=== PATIENT | female | born 2000 | race African-American/Black ===

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

== ENCOUNTER 2018-02-26 10:47 | Emergency (ER) | payer OTHER ==
[2018-02-26 11:23] LABS: URINE HCG POC HCG NEGATIVE (Negative)
[2018-02-26 11:26] LABS: BILIRUBIN,URINE NEGATIVE (NEG); CLARITY,URINE CLEAR; COLOR,URINE YELLOW; GLUCOSE,URINE NEGATIVE (NEG); NITRITE,URINE NEGATIVE (NEG); PROTEIN,URINE NEGATIVE (NEG-TRACE); UROBILINOGEN,URINE 0.2 mg/dL (0.2 mg/dL)
[2018-02-26 11:33] LABS: BACTERIA,URINE 0 /HPF (0-FEW); RBC,URINE 0 /HPF (0-2); SQUAMOUS EPITHELIAL CELL,UR MANY /LPF
[2018-02-26] MEDS: ACETAMINOPHEN 500 MG TABLET PO (11:38)
== END 2018-02-26 11:38 | disposition left against medical advice (07) ==
LOC: ER 10:47
DX: R30.0 Dysuria (principal); R35.0 Frequency of micturition; Z87.440 Personal history of urinary (tract) infections
CPT/HCPCS: 81001; 81025; 87086; 99284

== ENCOUNTER 2018-03-09 17:32 | Emergency (ER) | payer OTHER ==
[2018-03-10 07:41] LABS: NEGATIVE OBC STREP NEG; POSITIVE OBC STREP POS
== END 2018-03-09 18:45 | disposition home or self-care (01) ==
LOC: ER 17:32
DX: J06.9 Acute upper respiratory infection, unspecified (principal); H92.01 Otalgia, right ear; H92.02 Otalgia, left ear; J45.909 Unspecified asthma, uncomplicated; Z96.22 Myringotomy tube(s) status; Z87.440 Personal history of urinary (tract) infections
CPT/HCPCS: 87880; 99283

== ENCOUNTER 2018-03-10 22:07 | Emergency (ER) | payer OTHER ==
[2018-03-10] MEDS: IV NORMAL SALINE 1000ML BAG 1,000 ML IV (22:50)
[2018-03-10] MEDS: ONDANSETRON PF 4 MG/2 ML VIAL. IV (23:00)
[2018-03-10 23:01] LABS: ADD MAN DIFF? YES; BASO % 0 % (0-3); EOS % 0 % (0-3); HEMATOCRIT 39.1 % (36.0-47.0); HEMOGLOBIN 13.7 g/dL (12.0-15.5); LYMPH # 0.6 x10^3/uL (1.0-4.8); LYMPH % 6 % (24-48); MEAN CORPUSCULAR HEMOGLOBIN 30 pg (25-35); MEAN CORPUSCULAR HGB CONC 35 g/dL (31-37); MEAN CORPUSCULAR VOLUME 86 fL (79-100); MONO # 0.9 x10^3/uL (0.0-1.1); MONO % 8 % (0-9); NEUT # 10.1 x10^3uL (1.8-7.7); NEUT % 86 % (31-73); PLATELET COUNT 181 x10^3/uL (140-400); RED BLOOD COUNT 4.54 x10^6/uL (3.50-5.40); RED CELL DISTRIBUTION WIDTH 12.5 % (11.5-14.5); WHITE BLOOD COUNT 11.7 x10^3/uL (4.0-11.0)
[2018-03-10 23:09] LABS: ANION GAP 13 (6-14); BLOOD UREA NITROGEN 9 mg/dL (7-20); CALCIUM 9.3 mg/dL (8.5-10.1); CARBON DIOXIDE 23 mmol/L (21-32); CHLORIDE 104 mmol/L (98-107); GFR 86.4; GLUCOSE 101 mg/dL (70-99); POTASSIUM 3.4 mmol/L (3.5-5.1); SODIUM 140 mmol/L (136-145)
[2018-03-10] MEDS: ACETAMINOPHEN 500 MG TABLET PO (23:40)
[2018-03-11 00:03] LABS: BILIRUBIN,URINE NEGATIVE (NEG); CLARITY,URINE CLEAR; COLOR,URINE YELLOW; GLUCOSE,URINE NEGATIVE (NEG); NITRITE,URINE NEGATIVE (NEG); PH,URINE 5.5; PROTEIN,URINE NEGATIVE (NEG-TRACE); UROBILINOGEN,URINE 0.2 mg/dL (0.2 mg/dL)
[2018-03-11 00:08] LABS: BACTERIA,URINE FEW /HPF (0-FEW); RBC,URINE >40 /HPF (0-2)
[2018-03-11 00:09] LABS: HYALINE CASTS, URINE FEW /HPF; SQUAMOUS EPITHELIAL CELL,UR FEW /LPF
[2018-03-11] MEDS: PROMETHAZINE 12.5 MG TABLET. PO (00:15)
[2018-03-11] MEDS: AMOXICILLIN 250 MG CAPSULE. PO (00:30)
[2018-03-11 04:17] LABS: % ATYL 1 % (0-0); % BANDS 4 % (0-9); % LYMPHS 4 % (24-48); % MONOS 4 % (0-10); % SEGS 87 % (35-66); PLT ESTIMATE ADEQUATE (ADEQUATE)
== END 2018-03-11 00:45 | disposition home or self-care (01) ==
LOC: ER 22:07
DX: J01.10 Acute frontal sinusitis, unspecified (principal); R11.2 Nausea with vomiting, unspecified; Z87.440 Personal history of urinary (tract) infections
CPT/HCPCS: 36415; 80048; 81001; 85007; 85025; 87086; 96361; 96374; 99284-25; J2405; J7030; Q0169

== ENCOUNTER 2018-04-06 13:28 | Emergency (ER) | payer OTHER ==
[~2018-04-06] VITALS: Ht 162.6 cm; Wt 76.9 kg
[~2018-04-06 13:28] MED LIST: AMOX500T PO; IBUP-1007 PO; IBUP-1060 PO; NITR100C62 PO; ONDA4TAB10 PO; ONDA4TAB10 SL; PHEN-318 PO; PRED50TA PO; PROM25SU32 RC; PROM25TA10 PO
[2018-04-06 13:59] LABS: BILIRUBIN,URINE NEGATIVE (NEG); CLARITY,URINE CLEAR; COLOR,URINE YELLOW; NITRITE,URINE NEGATIVE (NEG); PROTEIN,URINE NEGATIVE (NEG-TRACE); UROBILINOGEN,URINE 0.2 mg/dL (0.2 mg/dL)
[2018-04-06 14:03] LABS: BASO % 1 % (0-3); EOS % 1 % (0-3); HEMATOCRIT 38.5 % (36.0-47.0); HEMOGLOBIN 13.5 g/dL (12.0-15.5); LYMPH # 1.5 x10^3/uL (1.0-4.8); LYMPH % 37 % (24-48); MEAN CORPUSCULAR HEMOGLOBIN 30 pg (25-35); MEAN CORPUSCULAR HGB CONC 35 g/dL (31-37); MEAN CORPUSCULAR VOLUME 86 fL (79-100); MONO # 0.2 x10^3/uL (0.0-1.1); MONO % 5 % (0-9); NEUT # 2.3 x10^3uL (1.8-7.7); NEUT % 56 % (31-73); PLATELET COUNT 198 x10^3/uL (140-400); RED BLOOD COUNT 4.48 x10^6/uL (3.50-5.40); WHITE BLOOD COUNT 4.2 x10^3/uL (4.0-11.0)
[2018-04-06 14:11] LABS: BACTERIA,URINE MANY /HPF (0-FEW); RBC,URINE RARE /HPF (0-2); SQUAMOUS EPITHELIAL CELL,UR MANY /LPF
[2018-04-06 14:14] LABS: AMPHETAMINE/METHAMPHETAMINE NEG (NEG); BARBITURATES NEG (NEG); BENZODIAZEPINES NEG (NEG); CANNABINOIDS NEG (NEG); COCAINE NEG (NEG); METHADONE NEG (NEG); OPIATES NEG (NEG); PHENCYCLIDINE NEG (NEG)
--- NOTE | 2018-04-06 14:14 | RAD ---
AP and Lateral Views of the Chest 04/06/2018 1:47 PM Indication: PALPITATIONS STARTED THIS AM Comparison: Chest radiograph March 28, 2017 Findings: There is no focal consolidation or infiltrate identified. The cardiomediastinal silhouette is within normal limits. There is no evidence of pneumothorax or pleural effusion. No acute osseous abnormalities are identified. Impression: No evidence of acute cardiopulmonary process. Electronically signed by: Ellis Grigsby MD (04/06/2018 2:11 PM) [email or web address]
[2018-04-06 14:22] LABS: CREATININE 0.8 mg/dL (0.6-1.0); GFR 111.8; POTASSIUM 3.5 mmol/L (3.5-5.1)
--- NOTE | 2018-04-06 14:23 | RAD ---
CT HEAD WO CONTRAST History: DIZZY SINCE THIS AM. Comparison: None. Technique: Noncontrast CT imaging was performed of the head. Exposure: One or more of the following individualized dose reduction techniques were utilized for this examination: 1. Automated exposure control 2. Adjustment of the mA and/or kV according to patient size 3. Use of iterative reconstruction technique. Findings: No acute extra-axial or parenchymal hemorrhage is identified. There is no significant intra-axial mass effect, midline shift, or extra-axial fluid collection. The sheth-white differentiation of the major vascular territories is preserved. The ventricles, sulci, and cisterns are within normal limits in size and configuration. The mastoid air cells and the visualized paranasal sinuses are aerated. No acute calvarial abnormality is identified. Impression: 1. No acute intracranial abnormality is identified. Electronically signed by: Lázaro Montes MD (04/06/2018 2:20 PM) [id number]
[2018-04-06 14:27] LABS: ALBUMIN 3.6 g/dL (3.4-5.0); ALBUMIN/GLOBULIN RATIO 0.8 (1.0-1.7); TOTAL BILIRUBIN 0.3 mg/dL (0.2-1.0); TOTAL PROTEIN 8.1 g/dL (6.4-8.2)
[2018-04-06] MEDS ORDERED: SULF1TAB24 PO (14:37)
--- NOTE | 2018-04-06 14:38 | PHYS DOC ---
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 The patient states that this started this morning. She denies fever, headache, vision changes or changes in gait. She states that she had some numbness in her right toes when she awoke that traveled up her right side. She states that she has been tired and fatigued and when she was driving to work today she just felt funny. She states that sometimes she feels like her heart is beating hard in her chest. Review of Systems Review of Systems Constitutional: Denies fever or chills [] Eyes: Denies change in visual acuity, redness, or eye pain [] HENT: Denies nasal congestion or sore throat [] Respiratory: Denies cough or shortness of breath [] Cardiovascular: See history of present illness GI: Denies abdominal pain, nausea, vomiting, bloody stools or diarrhea [] : Denies dysuria or hematuria [] Musculoskeletal: Denies back pain or joint pain [] Integument: Denies rash or skin lesions [] Neurologic: See history of present illness Endocrine: Denies polyuria or polydipsia [] All other systems were reviewed and found to be within normal limits, except as documented in this note. Allergies Allergies Allergies Coded Allergies Type Severity Reaction Last Updated Verified No Known Drug Allergies 11/10/15 No Physical Exam Physical Exam Constitutional: Well developed, well nourished, no acute distress, non-toxic appearance. [] HENT: Normocephalic, atraumatic, bilateral external ears normal, oropharynx moist, no oral exudates, nose normal. [] Eyes: PERRLA, EOMI, conjunctiva normal, no discharge. [] Neck: Normal range of motion, no tenderness, supple, no stridor. [] Cardiovascular:Heart rate regular rhythm, no murmur [] Lungs & Thorax: Bilateral breath sounds clear to auscultation [] Abdomen: Bowel sounds normal, soft, no tenderness, no masses, no pulsatile masses. [] Skin: Warm, dry, no erythema, no rash. [] Back: No tenderness, no CVA tenderness. [] Extremities: No tenderness, no cyanosis, no clubbing, ROM intact, no edema. [] Neurologic: Alert and oriented X 3, normal motor function, normal sensory function, no focal deficits noted, cranial nerves II through XII are grossly intact. [] Psychologic: Affect normal, judgement normal, mood normal. [] Current Patient Data Vital Signs Vital Signs Date Time Temp Pulse Resp B/P (MAP) Pulse Ox O2 Delivery O2 Flow Rate FiO2 04/06/18 15:15 68 12 99 04/06/18 13:49 111/65 (80) Room Air Lab Values Laboratory Tests Test 04/06/18 13:15 04/06/18 13:40 04/06/18 13:53 White Blood Count 4.2 x10^3/uL (4.0-11.0) Red Blood Count 4.48 x10^6/uL (3.50-5.40) Hemoglobin 13.5 g/dL (12.0-15.5) Hematocrit 38.5 % (36.0-47.0) Mean Corpuscular Volume 86 fL (79-100) Mean Corpuscular Hemoglobin 30 pg (25-35) Mean Corpuscular Hemoglobin Concent 35 g/dL (31-37) Red Cell Distribution Width 13.0 % (11.5-14.5) Platelet Count 198 x10^3/uL (140-400) Neutrophils (%) (Auto) 56 % (31-73) Lymphocytes (%) (Auto) 37 % (24-48) Monocytes (%) (Auto) 5 % (0-9) Eosinophils (%) (Auto) 1 % (0-3) Basophils (%) (Auto) 1 % (0-3) Neutrophils # (Auto) 2.3 x10^3uL (1.8-7.7) Lymphocytes # (Auto) 1.5 x10^3/uL (1.0-4.8) Monocytes # (Auto) 0.2 x10^3/uL (0.0-1.1) Eosinophils # (Auto) 0.0 x10^3/uL (0.0-0.7) Basophils # (Auto) 0.0 x10^3/uL (0.0-0.2) Sodium Level 140 mmol/L (136-145) Potassium Level 3.5 mmol/L (3.5-5.1) Chloride Level 105 mmol/L (98-107) Carbon Dioxide Level 25 mmol/L (21-32) Anion Gap 10 (6-14) Blood Urea Nitrogen 11 mg/dL (7-20) Creatinine 0.8 mg/dL (0.6-1.0) Estimated GFR (Cockcroft-Gault) 111.8 BUN/Creatinine Ratio 14 (6-20) Glucose Level 116 mg/dL (70-99) H Calcium Level 9.0 mg/dL (8.5-10.1) Total Bilirubin 0.3 mg/dL (0.2-1.0) Aspartate Amino Transferase (AST) 14 U/L (15-37) L Alanine Aminotransferase (ALT) 15 U/L (14-59) Alkaline Phosphatase 57 U/L (46-116) Total Protein 8.1 g/dL (6.4-8.2) Albumin 3.6 g/dL (3.4-5.0) Albumin/Globulin Ratio 0.8 (1.0-1.7) L Urine Collection Type Unknown Urine Color Yellow Urine Clarity Clear Urine pH 5.0 Urine Specific [place] >=1.030 Urine Protein Negative mg/dL (NEG-TRACE) Urine Glucose (UA) Negative mg/dL (NEG) Urine Ketones (Stick) Negative mg/dL (NEG) Urine Blood Large (NEG) Urine Nitrite Negative (NEG) Urine Bilirubin Negative (NEG) Urine Urobilinogen Dipstick 0.2 mg/dL (0.2 mg/dL) Urine Leukocyte Esterase Trace (NEG) Urine RBC Rare /HPF (0-2) Urine WBC 1-4 /HPF (0-4) Urine Squamous Epithelial Cells Many /LPF Urine Bacteria Many /HPF (0-FEW) Urine Mucus Mod /LPF Urine Opiates Screen Neg (NEG) Urine Methadone Screen Neg (NEG) Urine Barbiturates Neg (NEG) Urine Phencyclidine Screen Neg (NEG) Urine Amphetamine/Methamphetamine Neg (NEG) Urine Benzodiazepines Screen Neg (NEG) Urine Cocaine Screen Neg (NEG) Urine Cannabinoids Screen Neg (NEG) Urine Ethyl Alcohol Neg (NEG) POC Urine HCG, Qualitative Hcg negative (Negative) Laboratory Tests 04/06/18 13:15 Laboratory Tests 04/06/18 13:15 EKG EKG [] Radiology/Procedures Radiology/Procedures []IMAGING REPORT Signed PATIENT: SAMARIA RANDHAWA ACCOUNT: [id number] : 2000 LOCATION: ER AGE: 17 SEX: F EXAM STATUS: REG ER ORD. PHYSICIAN: SHIRA ZARATE APRN REASON: dizzy PROCEDURE: CT HEAD WO CONTRAST CT HEAD WO CONTRAST History: DIZZY SINCE THIS AM. Comparison: None. Technique: Noncontrast CT imaging was performed of the head. Exposure: One or more of the following individualized dose reduction techniques were utilized for this examination: 1. Automated exposure control 2. Adjustment of the mA and/or kV according to patient size 3. Use of iterative reconstruction technique. Findings: No acute extra-axial or parenchymal hemorrhage is identified. There is no significant intra-axial mass effect, midline shift, or extra-axial fluid collection. The sheth-white differentiation of the major vascular territories is preserved. The ventricles, sulci, and cisterns are within normal limits in size and configuration. The mastoid air cells and the visualized paranasal sinuses are aerated. No acute calvarial abnormality is identified. Impression: 1. No acute intracranial abnormality is identified. Electronically signed by: Travis Medley MD (04/06/2018 2:20 PM) [email or web address] DICTATED and SIGNED BY: TRAVIS MEDLEY MD DATE: 04/06/18 1420 PATIENT: SAMARIA RANDHAWA ACCOUNT: [id number] : 2000 LOCATION: ER AGE: 17 SEX: F EXAM STATUS: REG ER ORD. PHYSICIAN: SHIRA ZARATE APRN REASON: palpitations PROCEDURE: CHEST PA & LATERAL AP and Lateral Views of the Chest 04/06/2018 1:47 PM Indication: PALPITATIONS STARTED THIS AM Comparison: Chest radiograph March 28, 2017 Findings: There is no focal consolidation or infiltrate identified. The cardiomediastinal silhouette is within normal limits. There is no evidence of pneumothorax or pleural effusion. No acute osseous abnormalities are identified. Impression: No evidence of acute cardiopulmonary process. Electronically signed by: Ellis Perdomo MD (04/06/2018 2:11 PM) [email or web address] DICTATED and SIGNED BY: ELLIS PERDOMO MD DATE: 04/06/18 1410 Course & Med Decision Making Course & Med Decision Making Pertinent Labs and Imaging studies reviewed. (See chart for details) []The patient's EKG, lab work and imaging were negative for an acute cause of her symptoms aside from a urinary tract infection. The patient will be treated for this infection. She did ask for work note for 2 days. That was given to her. She is to follow-up with her primary care provider if not improving. She is in agreement with this plan. Dragon Disclaimer Dragon Disclaimer This electronic medical record was generated, in whole or in part, using a voice recognition dictation system. Departure Departure Impression: Primary Impression: UTI (urinary tract infection) Disposition: 01 HOME, SELF-CARE Condition: STABLE Referrals: NO PCP (PCP) Patient Instructions: Urinary Tract Infection Additional Instructions: Take the antibiotic as directed. Follow-up with your primary care provider in one week for urine recheck. Increase fluids and rest. Scripts Sulfamethoxazole/Trimethoprim (BACTRIM DS TABLET) 1 Each Tablet 1 TAB PO BID, #14 TAB Prov: SHIRA ZARATE APRN 04/06/18 SHIRA ZARATE APRN Apr 06, 2018 14:38
--- NOTE | 2018-04-06 14:48 | EKG ---
[facility] [address] [place] [address] Test Date: 2018-04-06 Test Time: 13:50:01 Pat Name: SAMARIA RANDHAWA Department: Room: Gender: F Rayon Winder: : 2000 Requested By: SHIRA ZARATE Order Number: [id number] Reading MD: Carlos Jara MD Measurements Intervals [place] Rate: 79 P: 50 VA: 174 QRS: 45 QRSD: 84 T: 36 QT: 358 QTc: 416 Interpretive Statements SINUS RHYTHM Electronically Signed On 04-07-2018 8:21:00 CDT by Carlos Jara MD
[2018-04-06 15:15] VITALS: BP 98/60
== END 2018-04-06 15:18 | disposition home or self-care (01) ==
LOC: ER 13:28
DX: N39.0 Urinary tract infection, site not specified (principal); R00.2 Palpitations; R53.81 Other malaise; R42 Dizziness and giddiness; J45.909 Unspecified asthma, uncomplicated; Z98.890 Other specified postprocedural states
CPT/HCPCS: 36415; 70450; 71046; 80053; 80307; 81001; 81025; 85025; 87086; 93005; 99285-25; G0479

== ENCOUNTER 2018-04-12 22:08 | Emergency (ER) | payer OTHER ==
[~2018-04-12 22:08] MED LIST changes: +SULF1TAB24 PO
[2018-04-12 23:22] VITALS: BP 112/71
== END 2018-04-13 00:39 | disposition left against medical advice (07) ==
LOC: ER 22:11
DX: S09.90XA Unspecified injury of head, initial encounter (principal); Z53.21 Procedure and treatment not carried out due to patient leaving prior to being seen by health care provider; X58.XXXA Exposure to other specified factors, initial encounter; Y93.89 Activity, other specified; Y92.89 Other specified places as the place of occurrence of the external cause; Y99.8 Other external cause status

== ENCOUNTER 2018-12-13 10:26 | Emergency (ER) | payer SELFPAY ==
[~2018-12-13] VITALS: Ht 162.6 cm; Wt 81.6 kg
[2018-12-13 10:35] VITALS: BP 125/78
[2018-12-13] MEDS ORDERED: DEXAMETHASONE SOD PHOS 20 MG/5 ML VIAL. PO ONE (11:15)
[2018-12-13] MEDS ORDERED: DEXAMETHASONE SOD PHOS 4 MG/ML VIAL ONE (11:19)
[2018-12-13] MEDS ORDERED: DEXAMETHASONE SOD PHOS 4 MG/ML VIAL PO ONE (11:30)
--- NOTE | 2018-12-13 13:27 | PHYS DOC ---
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 Review of Systems Review of Systems Constitutional: Denies fever or chills [] Eyes: She does have seasonal allergies GI: Denies abdominal pain, nausea, vomiting, bloody stools or diarrhea [] Neurologic: Denies headache, focal weakness or sensory changes [] Endocrine: Denies polyuria or polydipsia [] All other systems were reviewed and found to be within normal limits, except as documented in this note. Current Medications Current Medications Current Medications Medications (Trade) Dose Ordered Sig/Darian Start Time Stop Time Status Last Admin Dose Admin Dexamethasone Sodium Phosphate (Decadron) 4 mg STK-MED ONCE 12/13/18 11:19 12/13/18 11:20 DC Allergies Allergies Allergies Coded Allergies Type Severity Reaction Last Updated Verified No Known Drug Allergies 11/10/15 No Physical Exam Physical Exam Constitutional: Well developed, well nourished, no acute distress, non-toxic appearance. [] HENT: Sinus congestion and tenderness noted in the maxillary area bilateral mild tonsillar erythema no exudate positive lymphadenopathy noted Eyes: PERRLA, EOMI, conjunctiva normal, no discharge. [] Neck: Normal range of motion, no tenderness, supple, no stridor. [] Cardiovascular:Heart rate regular rhythm, no murmur [] Lungs & Thorax: Bilateral breath sounds clear to auscultation [] Abdomen: Bowel sounds normal, soft, no tenderness, no masses, no pulsatile masses. [] Skin: Warm, dry, no erythema, no rash. [] Back: No tenderness, no CVA tenderness. [] Extremities: No tenderness, no cyanosis, no clubbing, ROM intact, no edema. [] Neurologic: Alert and oriented X 3, normal motor function, normal sensory function, no focal deficits noted. [] Psychologic: Affect normal, judgement normal, mood normal. [] Current Patient Data Vital Signs Vital Signs Date Time Temp Pulse Resp B/P (MAP) Pulse Ox O2 Delivery O2 Flow Rate FiO2 12/13/18 10:35 98.2 94 18 125/78 (94) 99 Room Air 98.2 Lab Values Laboratory Tests Test 12/13/18 10:48 Group A Streptococcus Rapid Negative (NEGATIVE) EKG EKG [] Radiology/Procedures Radiology/Procedures [] Course & Med Decision Making Course & Med Decision Making Pertinent Labs and Imaging studies reviewed. (See chart for details) []Rapid strep is negative Likely sinus congestion etc. [id number] agents Decadron was given in the emergency room Dragon Disclaimer Dragon Disclaimer This electronic medical record was generated, in whole or in part, using a voice recognition dictation system. Departure Departure Impression: Primary Impression: Viral pharyngitis Disposition: HOME, SELF-CARE Condition: STABLE Referrals: NO PCP (PCP) Patient Instructions: Sore Throat, [id number] JAMAL BAUTISTA MD Dec 13, 2018 13:27
== END 2018-12-13 11:24 | disposition home or self-care (01) ==
LOC: ER 10:26
DX: J02.8 Acute pharyngitis due to other specified organisms (principal); B97.89 Other viral agents as the cause of diseases classified elsewhere; J45.909 Unspecified asthma, uncomplicated; Z90.89 Acquired absence of other organs; Z77.22 Contact with and (suspected) exposure to environmental tobacco smoke (acute) (chronic)
CPT/HCPCS: 87070; 87880; 99283; J1100

== ENCOUNTER 2018-12-15 12:44 | Emergency (ER) | payer SELFPAY ==
[~2018-12-15] VITALS: Ht 162.6 cm; Wt 76.7 kg
[2018-12-15 16:23] LABS: BILIRUBIN,URINE NEGATIVE (NEG); CLARITY,URINE CLEAR; COLOR,URINE YELLOW; NITRITE,URINE NEGATIVE (NEG); PROTEIN,URINE NEGATIVE (NEG-TRACE); UROBILINOGEN,URINE 0.2 mg/dL (0.2 mg/dL)
[2018-12-15 16:36] LABS: BACTERIA,URINE FEW /HPF (0-FEW); RBC,URINE 0 /HPF (0-2); SQUAMOUS EPITHELIAL CELL,UR OCC /LPF
--- NOTE | 2018-12-15 16:43 | RAD ---
Examination: Ultrasound pelvis HISTORY: History of pelvic pain, vaginal irritation, redness. COMPARISON: None available FINDINGS: The uterus measures 6.5 x 5.0 x 4.2 cm. Endometrium measures 5.6 mm in thickness. The right ovary measures 3.2 x 2.4 x 2.9 cm. The left ovary measures 3.4 x 1.5 x 1.8 cm. Blood flow identified in the right and left ovaries. Follicles identified in the right and left ovaries. IMPRESSION: Unremarkable exam Electronically signed by: Stefano Beebe MD (12/15/2018 4:41 PM) [id number]
[2018-12-15] MEDS ORDERED: ONDA4TAB12 PO (17:02)
[2018-12-15] MEDS ORDERED: AMOX875T PO (17:02)
[2018-12-15] MEDS ORDERED: METR500T PO (17:02)
--- NOTE | 2018-12-15 17:03 | PHYS DOC ---
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 Symptoms include cough, runny nose, congestion, and R ear ache. She has associated symptoms of Left lower pelvic pain, nausea and vomiting. She also complains of vaginal irritation that started last night. She rates her pain a 8/10 and is stabbing in nature. Review of Systems Review of Systems Constitutional: Denies fever or chills [] Eyes: Denies change in visual acuity, redness, or eye pain [] HENT: Report nasal congestion. Denies sore throat [] Respiratory: Reports cough. Denies shortness of breath [] Cardiovascular: No additional information not addressed in HPI [] GI: Reports abdominal pain, nausea, and vomiting. : Reports dysuria or hematuria [] Musculoskeletal: Denies back pain or joint pain [] Integument: Denies rash or skin lesions [] Neurologic: Denies headache, focal weakness or sensory changes [] Endocrine: Denies polyuria or polydipsia [] Complete systems were reviewed and found to be within normal limits, except as documented in this note. Current Medications Current Medications Current Medications Medications (Trade) Dose Ordered Sig/Darian Start Time Stop Time Status Last Admin Dose Admin Azithromycin (Zithromax) 1,000 mg 1X ONCE 12/15/18 17:15 12/15/18 17:16 DC 12/15/18 17:13 1,000 MG Ceftriaxone Sodium (Rocephin Im) 250 mg 1X ONCE 12/15/18 17:15 12/15/18 17:16 DC 12/15/18 17:14 250 MG Allergies Allergies Allergies Coded Allergies Type Severity Reaction Last Updated Verified No Known Drug Allergies 11/10/15 No Physical Exam Physical Exam Constitutional: Well developed, well nourished, no acute distress, non-toxic appearance. [] HENT: Normocephalic, atraumatic, right erythema in the tympanic membrane, oropharynx moist, no oral exudates, turbinates red. [] Eyes: PERRLA, EOMI, conjunctiva normal, no discharge. [] Neck: Normal range of motion, no tenderness, supple, no stridor. [] Cardiovascular:Heart rate regular rhythm, no murmur [] Lungs & Thorax: Bilateral breath sounds clear to auscultation [] Abdomen: Bowel sounds normal, soft, left lower quadrant tenderness, no masses, no pulsatile masses. [] Skin: Warm, dry, no erythema, no rash. [] Back: No tenderness, no CVA tenderness. [] Extremities: No tenderness, no cyanosis, no clubbing, ROM intact, no edema. [] Neurologic: Alert and oriented X 3, normal motor function, normal sensory function, no focal deficits noted. [] Psychologic: Affect normal, judgement normal, mood normal. [] Current Patient Data Vital Signs Vital Signs Date Time Temp Pulse Resp B/P (MAP) Pulse Ox O2 Delivery O2 Flow Rate FiO2 12/15/18 17:24 89 16 108/69 (82) 98 Room Air 12/15/18 14:33 98.5 98.5 Lab Values Laboratory Tests Test 12/15/18 14:33 12/15/18 14:50 12/15/18 15:32 POC Urine HCG, Qualitative Hcg negative (Negative) Urine Color Yellow Urine Clarity Clear Urine pH 6.0 Urine Specific Sims 1.025 Urine Protein Negative mg/dL (NEG-TRACE) Urine Glucose (UA) Negative mg/dL (NEG) Urine Ketones (Stick) Negative mg/dL (NEG) Urine Blood Negative (NEG) Urine Nitrite Negative (NEG) Urine Bilirubin Negative (NEG) Urine Urobilinogen Dipstick 0.2 mg/dL (0.2 mg/dL) Urine Leukocyte Esterase Small (NEG) Urine RBC 0 /HPF (0-2) Urine WBC 5-10 /HPF (0-4) Urine Squamous Epithelial Cells Occ /LPF Urine Bacteria Few /HPF (0-FEW) Urine Mucus Mod /LPF Chlamydia DNA Probe Negative (Negative) Neisseria gonorrhoeae DNA Probe Negative (Negative) Microbiology 12/15/18 Wet Prep - Final, Complete EKG EKG [] Radiology/Procedures Radiology/Procedures Pelvic Exam: External exam is normal and without rash, Has CMT, OS is closed, Mild white discharge, No adnexal masses and mild tenderness noted[] PATIENT: SAMARIA RANDHAWA ACCOUNT: [id number] : 2000 LOCATION: ER AGE: 18 SEX: F EXAM STATUS: REG ER ORD. PHYSICIAN: GRISELDA LOPEZ APRN REASON: pelvic pain/vag irritation/redness PROCEDURE: PELVIS W/TV Examination: Ultrasound pelvis HISTORY: History of pelvic pain, vaginal irritation, redness. COMPARISON: None available FINDINGS: The uterus measures 6.5 x 5.0 x 4.2 cm. Endometrium measures 5.6 mm in thickness. The right ovary measures 3.2 x 2.4 x 2.9 cm. The left ovary measures 3.4 x 1.5 x 1.8 cm. Blood flow identified in the right and left ovaries. Follicles identified in the right and left ovaries. IMPRESSION: Unremarkable exam Electronically signed by: Stefano Beebe MD (12/15/2018 4:41 PM) [facility] Course & Med Decision Making Course & Med Decision Making Pertinent Labs and Imaging studies reviewed. (See chart for details) Discussed with patient about ordering an ultrasound, labs, urine, pelvic exam, STD testing, and she is agreeable. Will also order nausea medication. She declines pain medication. Nursing states patient refused lab. Talked to patient and does not want labs. Discussed how her STD test will not fully come back but lab states she has Trich. She agrees to go ahead and be treated for Trich and Gonorrhea and Chlamydia. Will also treat for UTI and R Otitis Media. Will then send home. Patient is agreeable. Dragon Disclaimer Dragon Disclaimer This electronic medical record was generated, in whole or in part, using a voice recognition dictation system. Departure Departure Impression: Primary Impression: UTI (urinary tract infection) Additional Impressions: Otitis media Trichomoniasis Disposition: 01 HOME, SELF-CARE Condition: STABLE Referrals: NO PCP (PCP) Patient Instructions: Trichomoniasis, Urinary Tract Infection, [id number] Additional Instructions: Please take antibiotics. Avoid sexual contact for two weeks. You were prophylactically treated for Gonorrhea and Chlamydia. Avoid Alcohol with Flagyl and 3 days afterwards. Return to ER if symptoms worsen. Scripts Ondansetron (ONDANSETRON ODT) 4 Mg Tab.rapdis 1 TAB PO PRN Q6-8HRS PRN for NAUSEA, #16 TAB Prov: GRISELDA LOPEZ APRN 12/15/18 Amoxicillin (AMOXICILLIN) 875 Mg Tablet 1 TAB PO BID for 7 Days, #14 TAB Prov: GRISELDA LOPEZ APRN 12/15/18 Metronidazole (FLAGYL) 500 Mg Tablet 1 TAB PO BID for 7 Days, #14 TAB 0 Refills Prov: GRISELDA LOPEZ APRN 12/15/18 Problem Qualifiers Primary Impression: UTI (urinary tract infection) Urinary tract infection type: acute cystitis Hematuria presence: without hematuria Qualified Codes: N30.00 - Acute cystitis without hematuria Additional Impressions: Otitis media Otitis media type: suppurative Chronicity: acute Laterality: right Recurrence: non-recurrent Spontaneous tympanic membrane rupture: without spontaneous rupture Qualified Codes: H66.001 - Acute suppurative otitis media without spontaneous rupture of ear drum, right ear GRISELDA LOPEZ APRN December 15, 2018 17:03
[2018-12-15] MEDS ORDERED: cefTRIAXone IM 250 MG VIAL IM ONE (17:15)
[2018-12-15] MEDS ORDERED: AZITHROMYCIN 250 MG TABLET. PO ONE (17:15)
[2018-12-15 17:24] VITALS: BP 108/69
[2018-12-16 13:15] LABS: GC PROBE Negative (Negative)
== END 2018-12-15 17:29 | disposition home or self-care (01) ==
LOC: ER 12:44
DX: N30.00 Acute cystitis without hematuria (principal); H66.001 Acute suppurative otitis media without spontaneous rupture of ear drum, right ear; A59.8 Trichomoniasis of other sites; R10.2 Pelvic and perineal pain; R11.2 Nausea with vomiting, unspecified; R10.32 Left lower quadrant pain; J45.909 Unspecified asthma, uncomplicated; Z90.89 Acquired absence of other organs
CPT/HCPCS: 36415; 76830; 76856; 81001; 81025; 87491; 87591; 96372; 99285; J0696; Q0111; Q0144

== ENCOUNTER 2019-08-01 17:48 | Emergency (ER) | payer SELFPAY ==
[~2019-08-01] VITALS: Ht 162.6 cm; Wt 80.7 kg
[~2019-08-01 17:48] MED LIST changes: +AMOX875T PO; +METR500T PO; +ONDA4TAB12 PO
[2019-08-01 18:39] VITALS: BP 106/64
--- NOTE | 2019-08-01 22:06 | PHYS DOC ---
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 Patient denies any fever. Review of Systems Review of Systems Constitutional: Denies fever or chills [] Eyes: Denies change in visual acuity, redness, or eye pain [] HENT: Reports here pain and nasal congestion and sinus pressure Denies sore throat [] Respiratory: Denies cough or shortness of breath [] Cardiovascular: No additional information not addressed in HPI [] GI: Denies abdominal pain, nausea, vomiting, bloody stools or diarrhea [] : Denies dysuria or hematuria [] Musculoskeletal: Denies back pain or joint pain [] Integument: Denies rash or skin lesions [] Neurologic: Reports headache, denies focal weakness or sensory changes [] All other systems were reviewed and found to be within normal limits, except as documented in this note. Allergies Allergies Allergies Coded Allergies Type Severity Reaction Last Updated Verified No Known Drug Allergies 11/10/15 No Physical Exam Physical Exam Constitutional: Well developed, well nourished, no acute distress, non-toxic appearance. [] HENT: Normocephalic, atraumatic, bilateral external ears normal, oropharynx moist, no oral exudates, nose normal. [] Eyes: PERRLA, EOMI, conjunctiva normal, no discharge. [] Neck: Normal range of motion, no tenderness, supple, no stridor. [] Cardiovascular:Heart rate regular rhythm, no murmur [] Lungs & Thorax: Bilateral breath sounds clear to auscultation [] Abdomen: Bowel sounds normal, soft, no tenderness, no masses, no pulsatile masses. [] Skin: Warm, dry, no erythema, no rash. [] Back: No tenderness, no CVA tenderness. [] Extremities: No tenderness, no cyanosis, no clubbing, ROM intact, no edema. [] Neurologic: Alert and oriented X 3, normal motor function, normal sensory function, no focal deficits noted. [] Psychologic: Affect normal, judgement normal, mood normal. [] Current Patient Data Vital Signs Vital Signs Date Time Temp Pulse Resp B/P (MAP) Pulse Ox O2 Delivery O2 Flow Rate FiO2 08/01/19 18:39 97.5 93 18 106/64 (78) 97 Room Air 97.5 EKG EKG [] Radiology/Procedures Radiology/Procedures [] Course & Med Decision Making Course & Med Decision Making Pertinent Labs and Imaging studies reviewed. (See chart for details) This is a 19-year-old female patient presenting to the ED today with viral illness symptoms. She was given an MSE exam. She eloped. Dragon Disclaimer Dragon Disclaimer This electronic medical record was generated, in whole or in part, using a voice recognition dictation system. Departure Departure Impression: Primary Impression: Cough Additional Impressions: Upper respiratory infection Headache Disposition: 07 AGAINST MEDICAL ADVICE Condition: STABLE Referrals: NO PCP (PCP) Problem Qualifiers Additional Impressions: Upper respiratory infection URI type: unspecified URI Qualified Codes: J06.9 - Acute upper respiratory infection, unspecified Headache Headache type: unspecified Headache chronicity pattern: unspecified pattern Intractability: not intractable Qualified Codes: R51 - Headache SEANEMILIE DO [employer] CLERK Aug 01, 2019 22:06
== END 2019-08-01 19:12 | disposition home or self-care (01) ==
LOC: ER 17:48
DX: J06.9 Acute upper respiratory infection, unspecified (principal); R05 Cough; R51 Headache; J30.2 Other seasonal allergic rhinitis; J45.909 Unspecified asthma, uncomplicated; Z98.890 Other specified postprocedural states
CPT/HCPCS: 99281

== ENCOUNTER 2020-05-09 07:00 | Emergency (ER) | payer SELFPAY ==
[~2020-05-09] VITALS: Ht 162.6 cm; Wt 82.0 kg
[2020-05-09 07:15] VITALS: BP 166/79
--- NOTE | 2020-05-09 07:22 | PHYS DOC ---
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 Feels something "moving" in her left ear. No other acute medical complaints. Review of Systems: Review of Systems: Gen: No fever, chills. ENT: Reports left ear foreign body. Resp. No SOB, cough. GI: No abd pain, N/V. Neuro: No FRANCIS, dizziness, weakness. Remainder of systems reviewed and negative unless otherwise specified. Heart Score: Risk Factors: Risk Factors: DM, Current or recent (<one month) smoker, HTN, HLP, family history of CAD, obesity. Risk Scores: Score 0 - 3: 2.5% MACE over next 6 weeks - Discharge Home Score 4 - 6: 20.3% MACE over next 6 weeks - Admit for Clinical Observation Score 7 - 10: 72.7% MACE over next 6 weeks - Early Invasive Strategies Allergies: Allergies: Allergies Coded Allergies Type Severity Reaction Last Updated Verified No Known Drug Allergies 11/10/15 No Physical Exam: PE: Gen: NAD. Well nourished. Head: NC/AT. Eyes: No scleral icterus. No conjunctival injection. ENT: MMM. Posterior OP clear. Insect thorax identified left EAC. Neck: Supple. CV: RRR. Peripheral pulses intact. Resp: CTAB. Abd: Soft. NT. ND. MSK: No peripheral cyanosis. No edema. Neuro: Awake and alert. Skin. Warm. Dry. Psych: Appropriate mood & affect. EKG: EKG: [] Radiology/Procedures: Radiology/Procedures: [] Course & Med Decision Making: Course & Med Decision Making Pertinent Labs and Imaging studies reviewed. (See chart for details) In summary, 20F p/w small insect of left EAC. Viscous lido placed. Tiny insect removed in pieces with currette. TM intact. DC home with outpatient F/U. Return precautions given. Higinio Disclaimer: Higinio Disclaimer: This electronic medical record was generated, in whole or in part, using a voice recognition dictation system. Departure Departure Impression: Primary Impression: Ear foreign body Disposition: HOME, SELF-CARE Condition: STABLE Referrals: NO PCP (PCP) Patient Instructions: Ear Foreign Body, [id number] Scripts Ofloxacin (OFLOXACIN) 5 Ml Drops 5 DROP LEFT EAR BID for 5 Days, #5 ML 0 Refills Prov: VIOLETA LUNSFORD DO 05/09/20 Justicifation of Admission Dx: Justifications for Admission: Justification of Admission Dx: N/A VIOLETA LUNSFORD DO May 09, 2020 07:22
[2020-05-09] MEDS ORDERED: LIDOCAINE 2% VISCOUS 15 ML SOLUTION. SWSW ONE (08:00)
[2020-05-09] MEDS ORDERED: OFLO5DRO7 LEFT EAR (08:07)
== END 2020-05-09 08:40 | disposition home or self-care (01) ==
LOC: ER 07:00
DX: T16.2XXA Foreign body in left ear, initial encounter (principal); J45.909 Unspecified asthma, uncomplicated; Z98.890 Other specified postprocedural states; Z90.89 Acquired absence of other organs; W45.8XXA Other foreign body or object entering through skin, initial encounter; Y93.89 Activity, other specified; Y92.89 Other specified places as the place of occurrence of the external cause; Y99.8 Other external cause status
CPT/HCPCS: 69200; 99284